=== PATIENT | male | born 1945 | race Caucasian/White ===

== ENCOUNTER → 2022-10-31 12:53 | Outpatient (CLI) | payer MEDICARE, OTHER, SELFPAY ==
--- NOTE | ~2022-10-31 | US_ITS ---
Renal-Bladder ultrasound Clinical History: Diabetes, chronic kidney disease Technique: Real-time sonographic imaging of the kidneys and urinary bladder was performed. Findings: The right kidney measures 11.0 cm in length and the left kidney measures 10.4 cm. There is no hydronephrosis or renal calculus identified. Renal cortical echogenicity is within normal limits. No renal mass lesion is identified. The urinary bladder is moderately distended at the time of this exam. No intraluminal echoes are iden tified. No abnormal wall thickening is seen. Impression: Unremarkable ultrasound of the kidneys and urinary bladder. Reviewed, dictated and finalized at location M. Impression: Unremarkable ultrasound of the kidneys and urinary bladder.
== END ==
PROVIDERS: PCP Emergency Medicine; Visit Provider Internal Medicine Nephrology
DX: E11.22 Type 2 diabetes mellitus with diabetic chronic kidney disease (principal); I12.9 Hypertensive chronic kidney disease with stage 1 through stage 4 chronic kidney disease, or unspecified chronic kidney disease; N18.31 Chronic kidney disease, stage 3a
CPT/HCPCS: 76775

== ENCOUNTER → 2023-07-15 11:44 | Outpatient (REF) | payer MEDICARE, OTHER, SELFPAY | LOC: ANHLAB 11:44 | PROVIDERS: PCP Emergency Medicine; Visit Provider Plastic Surgery | DX: C44.629 Squamous cell carcinoma of skin of left upper limb, including shoulder (principal) | CPT/HCPCS: 88305 ==

== ENCOUNTER → 2023-11-09 13:42 | Outpatient (REF) | payer MEDICARE, OTHER, SELFPAY | LOC: ANHLAB 13:42 | PROVIDERS: PCP Emergency Medicine; Visit Provider Plastic Surgery | DX: C44.01 Basal cell carcinoma of skin of lip (principal) | CPT/HCPCS: 88305 ==